=== PATIENT | male | born 1985 | race African-American/Black ===

== ENCOUNTER 2021-07-19 15:13 | Inpatient (IN) | payer SELFPAY ==
[~2021-07-19] VITALS: Ht 188 cm; Wt 91.2 kg
[2021-07-19] MEDS ORDERED: diphenhydrAMINE HCL 50 MG/ML VIAL IM ONE (16:00)
[2021-07-19] MEDS ORDERED: OLANZAPINE 10 MG VIAL IM ONE (16:00)
[2021-07-19] MEDS ORDERED: diphenhydrAMINE HCL 50 MG CAPSULE ONE (16:03)
[2021-07-19] MEDS ORDERED: OLANZAPINE 5 MG TABLET ONE (16:03)
[2021-07-19] MEDS ORDERED: LORAZEPAM INJ 2 MG/ML VIAL ONE (16:16)
[2021-07-19] MEDS ORDERED: LORAZEPAM INJ 2 MG/ML VIAL IM ONE (16:30)
[2021-07-19] MEDS ORDERED: diphenhydrAMINE HCL 25 MG CAPSULE PO ONE (16:30)
[2021-07-19] MEDS ORDERED: OLANZAPINE 5 MG TABLET PO ONE (16:30)
[2021-07-19 16:50] LABS: CALCIUM, SERUM 10.9 mg/dL (8.5-10.1); CARBON DIOXIDE 16 mmol/L (21-32); CHLORIDE 105 mmol/L (98-107); CREATININE 1.5 mg/dL (0.6-1.3); GLUCOSE 142 mg/dL (74-106); SODIUM SERUM 147 mmol/L (136-145); UREA NITROGEN, BLOOD 27 mg/dL (7-18)
[2021-07-19 16:53] LABS: POTASSIUM 6.5 mmol/L (3.5-5.1)
[2021-07-19 16:55] LABS: ALANINE AMINOTRANSFERASE 65 U/L (12-78); ALBUMIN 5.1 g/dL (3.4-5.0); ALKALINE PHOSPHATASE 103 U/L (46-116); ASPARTATE AMINOTRANSFERASE 80 U/L (15-37); BILIRUBIN,DIRECT 0.2 mg/dL (0.0-0.2)
[2021-07-19 16:58] LABS: ACETAMINOPHEN < 0 ug/ml (10-30); ALCOHOL, BLOOD < 3 mg/dL (0-0)
[2021-07-19] MEDS ORDERED: HALOPERIDOL LACTATE INJ 5 MG/ML VIAL IM ONE ×2 (17:00→17:30)
[2021-07-19] MEDS ORDERED: HALOPERIDOL LACTATE INJ 5 MG/ML VIAL ONE (17:13)
[2021-07-19 17:17] LABS: BASOPHILS % (AUTO) 0.2 % (0.0-2.0); EOSINOPHILS % (AUTO) 0.2 % (0.0-6.0); HEMATOCRIT 48 % (39-51); HEMOGLOBIN 15.6 g/dL (13.5-17.5); LYMPHOCYTES # (AUTO) 3.3 K/uL (0.8-4.8); LYMPHOCYTES % (AUTO) 29.8 % (20.0-44.0); MEAN CORPUSCULAR HGB CONC 33 g/dl (31.0-36.0); MEAN CORPUSCULAR VOLUME 87 fL (80-96); MONOCYTES # (AUTO) 2.1 K/uL (0.1-1.30); MONOCYTES % (AUTO) 19.5 % (2.0-12.0); NEUTROPHILS # (AUTO) 5.5 K/uL (1.8-8.9); NEUTROPHILS % (AUTO) 50.3 % (43.0-81.0); PLATELET COUNT (AUTO) 251 K/uL (150-450); RED BLOOD CELL COUNT(AUTO) 5.49 MIL/uL (4.5-6.0); WHITE BLOOD COUNT (AUTO) 10.9 K/uL (4.3-11.0)
[2021-07-19 17:19] LABS: BILIRUBIN,URINE SMALL (NEGATIVE); COLOR,URINE DARK YELLOW (YELLOW); LEUKOCYTE ESTERASE ,URINE NEGATIVE (NEGATIVE); NITRITE, URINE NEGATIVE (NEGATIVE); PROTEIN,URINE 30 mg/dl (NEGATIVE); UGLUCOSE NEGATIVE (NEGATIVE); UROBILINOGEN,URINE 0.2 EU/dL (0.2)
--- NOTE | 2021-07-19 17:19 | NUR ---
yari non admin duplicate ordER.
[2021-07-19 17:44] LABS: BACTERIA,URINE Many /HPF (None Seen); SQUAMOUS EPITHELIAL CELL,UR Few /HPF (None Seen); WBC,URINE 0-2 /HPF (0-3)
[2021-07-19] MEDS ORDERED: INSULIN REGULAR, HUMAN 100 UNIT/ML 10 ML VIAL IV ONE (18:00)
[2021-07-19] MEDS ORDERED: SODIUM BICARBONATE SYR 50 MEQ/50 ML DISP.SYRIN IV ONE (18:00)
[2021-07-19] MEDS ORDERED: IV NS 0.9% 1,000 ML BAG IV ONE (18:00)
[2021-07-19] MEDS ORDERED: DEXTROSE 50%-WATER 50 ML DISP.SYRIN IV ONE (18:00)
[2021-07-19] MEDS ORDERED: ALBUTEROL FS 2.5 MG/3 ML VIAL.NEB NEB ONE (18:00)
[2021-07-19] MEDS ORDERED: SODIUM BICARBONATE SYR 50 MEQ/50 ML DISP.SYRIN ONE (18:19)
[2021-07-19] MEDS ORDERED: DEXTROSE 50%-WATER 50 ML DISP.SYRIN ONE (18:19)
[2021-07-19] MEDS ORDERED: INSULIN REGULAR, HUMAN 100 UNIT/ML 10 ML VIAL ONE (18:20)
[2021-07-19] MEDS ORDERED: Calcium Gluconate 1GM/10ML 4.65 MEQ in IV D5W 50 ML IV ONE (18:30)
[2021-07-19] MEDS ORDERED: FUROSEMIDE 40 MG/4 ML VIAL IV ONE (19:30)
[2021-07-19 19:39] LABS: EOSINOPHILS % (MANUAL) 1 % (0-4); LYMPHOCYTES % (MANUAL) 48 % (16-48); MONOCYTES % (MANUAL) 9 % (0-11.0); NEUTROPHILS % (MANUAL) 42 (42-76)
[2021-07-19 19:42] LABS: CREATININE 1.4 mg/dL (0.6-1.3); POTASSIUM 3.6 mmol/L (3.5-5.1)
[2021-07-19] MEDS ORDERED: ACETAMINOPHEN 325 MG TABLET PO PRN (20:00)
[2021-07-19] MEDS ORDERED: IV NS 0.9% 1,000 ML IV SCH (20:00)
[2021-07-19] MEDS ORDERED: MORPHINE SULFATE INJ 2 MG/ML DISP.SYRIN IV PRN (20:00)
[2021-07-19] MEDS ORDERED: ONDANSETRON HCL/PF 4 MG/2 ML VIAL IVP PRN (20:00)
[2021-07-19 20:05] LABS: ALBUMIN 3.6 g/dL (3.4-5.0); BILIRUBIN,DIRECT 0.1 mg/dL (0.0-0.2); BILIRUBIN,TOTAL 1.2 mg/dL (0.2-1.0); TOTAL PROTEIN, SERUM 7.1 g/dL (6.4-8.2)
[2021-07-19 20:19] LABS: CREATINE KINASE, TOTAL 3783 U/L (39-308)
--- NOTE | 2021-07-19 20:43 | NUR ---
LACTIC ACID 20.5
[2021-07-19] MEDS ORDERED: HEPARIN SODIUM, PORCINE 5000 UNITS/1 ML VIAL SQ SCH (21:00)
--- NOTE | 2021-07-19 21:44 | NUR ---
LASIX NON ADMIN HELD PER MD ORDER.
--- NOTE | 2021-07-19 21:50 | NUR ---
report given to Arnaud billingsley).
--- NOTE | 2021-07-19 21:50 | NUR ---
RN NOTE REPORT RECEIVED BY PATTIE PEACOCK.
[2021-07-19] MEDS: IV NS 0.9% 1,000 ML IV SCH (22:31)
[2021-07-19 22:45] VITALS: BP 145/69
--- NOTE | 2021-07-19 22:45 | NUR ---
RN NOTE PT TRANSFERRED TO UNIT VIA GURNEY. PT IS ON ROOM AIR SHOWING NO S/S OF RESP DISTRESS/SOB. OXYGEN SATURATION ON ROOM AIR AT 99%. VSS WNL. PT IS EASILY AROUSABLE, BUT CLOSES EYES IMMEDIATELY AND UNABLE TO ASK QUESTIONS. SKIN INTACT. ON REGULAR DIET. IV ACCESS NOTED ON RIGHT AC #18. LINE FLUSHED, PATENT, AND INTACT WITH NO SIGNS OF INFILTRATION. ALL SAFETY MEASURES IMPLEMENTED. WILL CONTINUE TO MONITOR AND ASSESS FOR ANY CHANGES DURING SHIFT.
--- NOTE | 2021-07-19 22:46 | NUR ---
pt transferred to room 111 per ACLS protocol.
[2021-07-20 00:40] LABS: ABG BASE EXCESS 0.2 mmol/L; ABG PCO2 34.9 mmHg (35.0-45.0); ABG PH 7.449 (7.350-7.450); ABG PO2 61.3 mmHg (75.0-100.0); COHb 1.5 % (0.5-1.5); MetHb 0.2 % (0.0-1.5); O2Hb 90.2 % (94.0-97.0); SITE, ABG Left Radial; VENT MODE, BG ROOM AIR
[2021-07-20] MEDS: IV NS 0.9% 1,000 ML IV SCH ×6 (03:33→23:09)
[2021-07-20 04:00] VITALS: BP 106/60
[2021-07-20 04:07] LABS: CALCIUM, SERUM 8.4 mg/dL (8.5-10.1); CREATININE 0.9 mg/dL (0.6-1.3); POTASSIUM 3.9 mmol/L (3.5-5.1)
[2021-07-20 04:13] LABS: ALBUMIN 3.3 g/dL (3.4-5.0); BILIRUBIN,TOTAL 0.8 mg/dL (0.2-1.0); MAGNESIUM 2.7 mg/dL (1.8-2.4); PHOSPHORUS 4.2 mg/dL (2.5-4.9); TOTAL PROTEIN, SERUM 6.7 g/dL (6.4-8.2)
[2021-07-20 04:17] LABS: BASOPHILS # (AUTO) 0.1 K/uL (0.0-0.2); BASOPHILS % (AUTO) 0.6 % (0.0-2.0); EOSINOPHILS % (AUTO) 0.4 % (0.0-6.0); HEMATOCRIT 38 % (39-51); HEMOGLOBIN 12.5 g/dL (13.5-17.5); LYMPHOCYTES # (AUTO) 2.7 K/uL (0.8-4.8); LYMPHOCYTES % (AUTO) 23.2 % (20.0-44.0); MEAN CORPUSCULAR HGB CONC 33 g/dl (31.0-36.0); MEAN CORPUSCULAR VOLUME 86 fL (80-96); MONOCYTES # (AUTO) 1.4 K/uL (0.1-1.30); MONOCYTES % (AUTO) 12.1 % (2.0-12.0); NEUTROPHILS # (AUTO) 7.5 K/uL (1.8-8.9); NEUTROPHILS % (AUTO) 63.7 % (43.0-81.0); PLATELET COUNT (AUTO) 180 K/uL (150-450); RED BLOOD CELL COUNT(AUTO) 4.44 MIL/uL (4.5-6.0); WHITE BLOOD COUNT (AUTO) 11.8 K/uL (4.3-11.0)
--- NOTE | 2021-07-20 06:38 | NUR ---
RN NOTE NO CHANGES IN PT CONDITION DURING SHIFT. PT IS ON ROOM AIR SHOWING NO S/S OF RESP DISTRESS/SOB. OXYGEN SATURATION ON ROOM AIR AT 99%. PT IS NOW MORE ALERT. ON REGULAR DIET. IV ACCESS NOTED ON RIGHT AC #18 RUNNING 0.9% NS AT 250 CC/HR. LINE FLUSHED, PATENT, AND INTACT WITH NO SIGNS OF INFILTRATION. ALL DUE MEDS GIVEN ORDERED. PT KEPT CLEAN AND COMFORTABLE. ALL SAFETY MEASURES IMPLEMENTED. WILL ENDORSE TO MORNING SHIFT RN FOR CHLOE.
--- NOTE | 2021-07-20 07:48 | NUR ---
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 A/O X2-3. PATIENT ON ROOM AIR SATING AT 99%. PATIENT IS NOTED WITH RIGHT ANTECUBITAL #18G PERIPHERAL IV RUNNING NS @250CC/HR. SKIN IS INTACT. PATIENT SHOWS NO S/S OF PAIN OR DISCOMFORT. NO CHEST PAIN OR SOB NOTED AT THIS TIME. BREATHING EXPANSION IS SYMMETRICAL. BED IN LOWEST POSITION AND LOCKED. ALL SAFETY MEASURES IN PLACE. WILL CONTINUE TO MONITOR PATIENT.
[2021-07-20 08:00] VITALS: BP 123/65
[2021-07-20] MEDS: HEPARIN SODIUM, PORCINE 5000 UNITS/1 ML VIAL SQ SCH ×2 (10:13→20:23)
[2021-07-20 12:00] VITALS: BP 122/70
--- NOTE | 2021-07-20 12:09 | NUR ---
"SS Consult: SS consult for homelessness. Pt. Is a 36-year-old male. Pt. demonstrates adequate insight to the reason for hospitalization. Per pt., he was brought to hospital by taking the bus. Pt. was oriented x3, alert, and cooperative. During interview, pt. was capable of following directions, made appropriate eye-contact, and appeared groomed. Pt.s speech was at a normal rate. Pt.s mood was elevated. SW explored pt.s hx of mental health and substance abuse. Per pt., he does all types of drugs but would not specify which one. Pt. reported no hx of mental health, suicidal or homicidal ideation. Pt. denies auditory hallucinations, visual hallucinations, paranoia, or delusions. SW explored pt.s living situation. Per pt., he has been homeless for couple weeks. Pt. stated that he has never been to a jail and is not interested. SW left jail resources at bedside. Plan: SW provided available resources and pt. accepted. Pt. signed waiver and its placed in chart. Once discharge, per pt., he will return to the streets. Resources Provided: [place] [facility]: SPA 2 | [facility] Address: Confidential (call for location ) Population Served: Coed # of Beds: 57 SPA 4 | [facility] Provider: [facility] Last Address: [address] [place] [address] # of Beds: 49 Population Served: Coed [facility] 6 | [facility] Provider: Home at Last Address: [address] [place] [address] # of Beds: 49 Population Served: Coed [facility]ush [facility] Residential Provider: Julieta Cary [facility] Address: [address] [facility] [address] # of Beds: 20 Population Served: Women [facility] Facility Provider: Home at Last Address: [address] [facility] [address] # of Beds: 30 Population Served: Women SPA 8 | [facility] Provider: [facility] [place] Address: [address] [facility] [address] # of Beds: 65 Population Served: Rebecca Year-round shelters: Madison [address] [place] [address] ; [facility] [employer] [facility] [address] [facility] [place] [address]; [facility] [address] [facility] [address] Winter Shelters: [facility] [place] Provider: [facility] [place] Address: [address], [address] # of Beds: 47 Population Served: [facility] 6 | [facility] Mellisa Simpson [place] Provider: Home [facility] Last Address: [address], [address] # of Beds: 66 Population Served: Rebecca [place] Provider: [facility] Serve Address: [address] [facility], [address] # of Beds: 56 Population Served: Rebecca [place] Provider: [facility] Address: [address] [facility], [address] # of Beds: 49 Population Served: [facility] SPA 8 | [facility] Provider: First to Serve Address: [address] [facility], [address] # of Beds: 37 Population Served: Rebecca Hygiene: [facility]: [address] ; [facility] [address] [facility] ; [facility] [address] . Food Resources: [facility] [facility]- [address] [place]; [facility] Need [facility] ([facility]) [address]; [facility] [address] [facility]; [facility] [address]. Mental Health resources provided: [facility] [address] [place], [place] [address] ; [facility] [address], [place] [address] ; [facility] [address] [place], [place] [phone] ; [facility] [address] [place], [place] [address] Healthcare Clinics: [facility] [address] [facility], [address] [place]. [place] ; [facility] [address] [facility] [address] [place] [address]; [facility] [address] [facility] [place] [phone]) [phone] Counseling--[facility]patient [facility] [address] [facility], [place] [address] (Specializes in in-depth psychotherapy for emotional distress: anxiety, depression, interpersonal conflicts, life transitions, childhood abuse) [facility] [address] [place] [address] (Assist with solving problem marital difficulties, separation & divorce, aging parents, & grief, chronic & terminal illness) [facility] [address] [place] [address] (Deal with loss & grief, anxiety, marital difficulties) Homebound/Mental Health Services [address], [address] [place], [place] [address] (Provide in-home mental services to people who are incapable of leaving their homes) [facility] [address] [place] [address] [facility] [address] [place], [place] [id number] "
[2021-07-20 12:37] LABS: CALCIUM, SERUM 8.3 mg/dL (8.5-10.1); CREATININE 0.7 mg/dL (0.6-1.3); POTASSIUM 3.8 mmol/L (3.5-5.1)
[2021-07-20 12:42] LABS: ALBUMIN 2.9 g/dL (3.4-5.0); BILIRUBIN,TOTAL 0.6 mg/dL (0.2-1.0); TOTAL PROTEIN, SERUM 6.3 g/dL (6.4-8.2)
[2021-07-20 16:00] VITALS: BP 133/70
--- NOTE | 2021-07-20 18:50 | NUR ---
RN CLOSING NOTES PATIENT REMAINED STABLE THROUGHOUT THE SHIFT. PATIENT STAYED IN ROOM AIR AND O2 SATURATION WAS BETWEEN 98-100%. NO COMPLAINS OF PAIN. NO CHEST DISCOMFORT OR SOB NOTED. PATIENT TELE READING WAS SINUS RHYTHM IN THE 80'S. RIGHT ANTECUBITAL 18G PERIPHERAL IV STILL RUNNING 250CC/HR NORMAL SALINE IV FLUIDS. ALL SAFETY MEASURES IN PLACE. CALL LIGHT WITHIN REACH. WILL ENDORSE TO DIAMOND POWDER TECHNICIAN NURSE.
[2021-07-20 20:00] VITALS: BP 117/62
--- NOTE | 2021-07-20 21:00 | NUR ---
Patient refused labs states he hates needles and already was given heparin said they can come draw labs later at 0200.
[2021-07-21] VITALS (7 sets, daily range): BP systolic 111–150; BP diastolic 65–85
--- NOTE | 2021-07-21 02:00 | NUR ---
Patient refused labs again despite explaining risks and benefits. Will attempt again in AM.
[2021-07-21] MEDS: IV NS 0.9% 1,000 ML IV SCH ×6 (03:43→23:17)
--- NOTE | 2021-07-21 06:33 | NUR ---
Patient is A&Ox4, no overnight issues besides lab refusals, but patient is tolerating Aggressive fluid resuscitation NS at 250cc/hr. Iv intact and patent. Spare Parts Clerk in AM attempted to get blood multiple times/sticks but patient is hard stick will have another volunteer firefighter try again.
--- NOTE | 2021-07-21 07:36 | NUR ---
RN OPENING NOTES RECEIVED Pt LAYING IN BED. Pt IS A/Ox4. BREATHING IS EVEN AND UNLABORED ON ROOM AIR. NO COMPLAINTS OF PAIN AND NO SIGNS OF DISTRESS NOTICED. SAFETY MEASURES ARE IN PLACE: BED IS LOCKED AND IN LOWEST POSITION. SIDE RAILS UPx2. WILL CONTINUE TO MONITOR THROUGHOUT THE SHIFT.
[2021-07-21] MEDS: HEPARIN SODIUM, PORCINE 5000 UNITS/1 ML VIAL SQ SCH ×2 (09:18→20:16)
[2021-07-21 10:58] LABS: BASOPHILS % (AUTO) 0.4 % (0.0-2.0); EOSINOPHILS % (AUTO) 0.5 % (0.0-6.0); HEMATOCRIT 38 % (39-51); HEMOGLOBIN 12.5 g/dL (13.5-17.5); LYMPHOCYTES # (AUTO) 2.1 K/uL (0.8-4.8); LYMPHOCYTES % (AUTO) 20.9 % (20.0-44.0); MEAN CORPUSCULAR HGB CONC 33 g/dl (31.0-36.0); MEAN CORPUSCULAR VOLUME 86 fL (80-96); MONOCYTES # (AUTO) 1.1 K/uL (0.1-1.30); MONOCYTES % (AUTO) 11.3 % (2.0-12.0); NEUTROPHILS # (AUTO) 6.7 K/uL (1.8-8.9); NEUTROPHILS % (AUTO) 66.9 % (43.0-81.0); PLATELET COUNT (AUTO) 162 K/uL (150-450); RED BLOOD CELL COUNT(AUTO) 4.45 MIL/uL (4.5-6.0)
[2021-07-21 11:16] LABS: ALBUMIN 2.9 g/dL (3.4-5.0); BILIRUBIN,TOTAL 0.3 mg/dL (0.2-1.0); CALCIUM, SERUM 8.2 mg/dL (8.5-10.1); CREATININE 0.7 mg/dL (0.6-1.3); MAGNESIUM 1.8 mg/dL (1.8-2.4); PHOSPHORUS 1.9 mg/dL (2.5-4.9); POTASSIUM 3.1 mmol/L (3.5-5.1); TOTAL PROTEIN, SERUM 6.2 g/dL (6.4-8.2)
[2021-07-21] MEDS ORDERED: K PHOS NEUTRAL 250 MG TABLET PO ONE (15:30)
[2021-07-21] MEDS ORDERED: POTASSIUM CHLORIDE 20 MEQ TAB.PRT.SR PO ONE (17:30)
--- NOTE | 2021-07-21 18:13 | NUR ---
MS RN CLOSING NOTES Pt IS AWAKE IN BED. A/Ox3-4. Pt IS ON ROOM AIR AND TOLERATING WELL. NO COMPLAINTS OF PAIN AND NO SIGNS OF DISTRESS AT THIS TIME. Pt IS NON-COMPLIANT AT TIMES WITH THE IV FLUIDS. BENEFITS OF FLUID EXPLAINED. SAFETY MEASURES ARE IN PLACE: BED IS LOCKED AND IN LOWEST POSITION. HAND ROLLER ENGRAVER RAILS UPx2. BED SIDE TABLE AND CALL LIGHT ARE WITHIN REACH. WILL ENDORSE TO ONCOMING SHIFT.
--- NOTE | 2021-07-21 20:00 | NUR ---
ms rn notes PATIENT RECEIVED IN BED. A/O X3. ON ROOM AIR SATING AT 96%. WITH LEFT UA MIDLINE #18G PERIPHERAL IV RUNNING NS @250CC/HR. SKIN IS INTACT. PATIENT SHOWS NO S/S OF PAIN OR DISCOMFORT. NO CHEST PAIN OR SOB NOTED AT THIS TIME. BREATHING EXPANSION IS SYMMETRICAL. BED IN LOWEST POSITION AND LOCKED. ALL SAFETY MEASURES IN PLACE. WILL CONTINUE TO MONITOR PATIENT.
[2021-07-22] MEDS: IV NS 0.9% 1,000 ML IV SCH ×2 (03:34→07:58)
[2021-07-22 04:00] VITALS: BP 147/82
--- NOTE | 2021-07-22 06:35 | NUR ---
MS RN CLOSING NOTES PTS IN BED. A/Ox3-4. ON ROOM AIR AND TOLERATING WELL. NO COMPLAINTS OF PAIN AND NO SIGNS OF DISTRESS AT THIS TIME. REMAINS ON NS AT 250CC/HR INFUSING WELL. SAFETY MEASURES ARE IN PLACE: BED IS LOCKED AND IN LOWEST POSITION. CLOTHES MARKER RAILS UPx2. BED SIDE TABLE AND CALL LIGHT ARE WITHIN REACH. WILL ENDORSE TO RN DAY SHIFT FOR CONTINUITY OF CARE.
[2021-07-22] MEDS: HEPARIN SODIUM, PORCINE 5000 UNITS/1 ML VIAL SQ SCH (09:59)
[2021-07-22 11:36] LABS: BASOPHILS # (AUTO) 0.1 K/uL (0.0-0.2); BASOPHILS % (AUTO) 0.8 % (0.0-2.0); EOSINOPHILS % (AUTO) 1.1 % (0.0-6.0); HEMATOCRIT 39 % (39-51); HEMOGLOBIN 12.9 g/dL (13.5-17.5); LYMPHOCYTES # (AUTO) 2.2 K/uL (0.8-4.8); LYMPHOCYTES % (AUTO) 28.8 % (20.0-44.0); MEAN CORPUSCULAR HGB CONC 33 g/dl (31.0-36.0); MEAN CORPUSCULAR VOLUME 85 fL (80-96); MONOCYTES # (AUTO) 0.9 K/uL (0.1-1.30); MONOCYTES % (AUTO) 11.6 % (2.0-12.0); NEUTROPHILS # (AUTO) 4.4 K/uL (1.8-8.9); NEUTROPHILS % (AUTO) 57.7 % (43.0-81.0); PLATELET COUNT (AUTO) 175 K/uL (150-450); RED BLOOD CELL COUNT(AUTO) 4.57 MIL/uL (4.5-6.0); WHITE BLOOD COUNT (AUTO) 7.5 K/uL (4.3-11.0)
[2021-07-22 11:56] LABS: CALCIUM, SERUM 8.1 mg/dL (8.5-10.1); CREATININE 0.7 mg/dL (0.6-1.3); POTASSIUM 3.1 mmol/L (3.5-5.1)
[2021-07-22 12:02] LABS: MAGNESIUM 1.4 mg/dL (1.8-2.4); PHOSPHORUS 2.2 mg/dL (2.5-4.9)
--- NOTE | 2021-07-22 12:10 | NUR ---
RN NOTE PT LEFT UNIT AT 11:55, IN GOOD CONDITION. NOT IN RESPIRATORY DISTRESS. MIDLINE JOSE D/C. D/C INSTRUCTIONS GIVEN TO PT.
[2021-07-22 12:29] LABS: ALBUMIN 2.7 g/dL (3.4-5.0); BILIRUBIN,TOTAL 0.2 mg/dL (0.2-1.0); TOTAL PROTEIN, SERUM 6.2 g/dL (6.4-8.2)
== END 2021-07-22 11:57 | disposition home or self-care (01) | DRG 682 ==
LOC: ER 15:16 → TELE1 21:14 → TELE-TD 22:31 → MEDSG1 07-20 09:10
PROVIDERS: ADMIT Internal Medicine; ATTEND Nurse Practitioner Acute Care
PROC: 05H633Z Insertion of Infusion Device into Left Subclavian Vein, Percutaneous Approach (ICD-10-PCS; principal; 2021-07-21)
PROC: B547ZZA Ultrasonography of Left Subclavian Vein, Guidance (ICD-10-PCS; 2021-07-21)
DX: N17.0 Acute kidney failure with tubular necrosis (principal); G92.9 Unspecified toxic encephalopathy; M62.82 Rhabdomyolysis; E87.2 Acidosis; F15.10 Other stimulant abuse, uncomplicated; E86.0 Dehydration; E87.5 Hyperkalemia; Z20.822 Contact with and (suspected) exposure to COVID-19
CPT/HCPCS: 36415; 36600; 80048-TC; 80053-TC; 80076-TC; 81001; 82010-TC; 82550-TC; 82553; 82803-TC; 82962-TC; 83605-TC; 83735-TC; 84100-TC; 84484-TC; 85025-TC; 87081-TC; 87086-TC; C9803; G0378; G0480; J0610; J1630; J1644; J1815; J2060; J3490; J7030; J7060; Q0163

== ENCOUNTER 2021-07-22 16:32 | Emergency (ER) | payer MEDICAID ==
[~2021-07-22] VITALS: Ht 182.9 cm; Wt 94.3 kg
[2021-07-22 17:43] LABS: BILIRUBIN,URINE NEGATIVE (NEGATIVE); COLOR,URINE YELLOW (YELLOW); LEUKOCYTE ESTERASE ,URINE NEGATIVE (NEGATIVE); NITRITE, URINE NEGATIVE (NEGATIVE); PROTEIN,URINE NEGATIVE (NEGATIVE); UGLUCOSE NEGATIVE (NEGATIVE); UROBILINOGEN,URINE 0.2 EU/dL (0.2)
[2021-07-22 18:04] LABS: BACTERIA,URINE None seen /HPF (None Seen); SQUAMOUS EPITHELIAL CELL,UR None Seen /HPF (None Seen); WBC,URINE 0-2 /HPF (0-3)
[2021-07-22 18:05] LABS: MUCUS,URINE Few /LPF (None Seen)
[2021-07-22 18:48] LABS: CALCIUM, SERUM 8.5 mg/dL (8.5-10.1); CARBON DIOXIDE 31 mmol/L (21-32); CHLORIDE 104 mmol/L (98-107); CREATININE 0.7 mg/dL (0.6-1.3); GLUCOSE 83 mg/dL (74-106); POTASSIUM 3.5 mmol/L (3.5-5.1); SODIUM SERUM 141 mmol/L (136-145); UREA NITROGEN, BLOOD 5 mg/dL (7-18)
[2021-07-22 18:57] LABS: ALANINE AMINOTRANSFERASE 53 U/L (12-78); ALBUMIN 3.3 g/dL (3.4-5.0); ALCOHOL, BLOOD < 3 mg/dL (0-0); ALKALINE PHOSPHATASE 64 U/L (46-116); ASPARTATE AMINOTRANSFERASE 88 U/L (15-37); BILIRUBIN,DIRECT 0.1 mg/dL (0.0-0.2); BILIRUBIN,TOTAL 0.2 mg/dL (0.2-1.0); TOTAL PROTEIN, SERUM 7.2 g/dL (6.4-8.2)
[2021-07-22 18:59] LABS: ACETAMINOPHEN < 2 ug/ml (10-30)
[2021-07-22 19:51] LABS: BASOPHILS % (AUTO) 0.5 % (0.0-2.0); EOSINOPHILS % (AUTO) 0.8 % (0.0-6.0); HEMATOCRIT 41 % (39-51); HEMOGLOBIN 13.4 g/dL (13.5-17.5); LYMPHOCYTES % (AUTO) 35.2 % (20.0-44.0); MEAN CORPUSCULAR HGB CONC 33 g/dl (31.0-36.0); MEAN CORPUSCULAR VOLUME 86 fL (80-96); MONOCYTES % (AUTO) 12.1 % (2.0-12.0); NEUTROPHILS # (AUTO) 4.4 K/uL (1.8-8.9); NEUTROPHILS % (AUTO) 51.4 % (43.0-81.0); PLATELET COUNT (AUTO) 198 K/uL (150-450); RED BLOOD CELL COUNT(AUTO) 4.73 MIL/uL (4.5-6.0); WHITE BLOOD COUNT (AUTO) 8.5 K/uL (4.3-11.0)
[2021-07-23 02:38] VITALS: BP 123/68
== END 2021-07-23 13:17 ==
LOC: ER 16:35
DX: R45.851 Suicidal ideations (principal); Z59.00 Homelessness unspecified; F20.9 Schizophrenia, unspecified; F17.210 Nicotine dependence, cigarettes, uncomplicated; F15.90 Other stimulant use, unspecified, uncomplicated; Z20.822 Contact with and (suspected) exposure to COVID-19
CPT/HCPCS: 36415; 80048; 80076; 80143; 80307; 80320; 81001; 85025; 87426; 99285; C9803; G0480